=== PATIENT | female | born 1940 | race Caucasian/White ===

== ENCOUNTER 2016-08-18 14:49 | Observation (INO) | payer MEDICARE, OTHER ==
[~2016-08-18] VITALS: Ht 165.1 cm; Wt 70.5 kg
--- NOTE | 2016-09-11 16:25 | HP ---
ADMIT: 08/18/2016 RM/LOC: [address] [facility] MR#: [id number] [facility]#: [id number] [address] [id number] PHILOMENA HER[place] [address] History and Physical SEX: F AGE: 76 : 1940 DATE OF SERVICE: CHIEF COMPLAINT: Unable to walk. HISTORY OF PRESENT ILLNESS: This is a 76-year-old white female, who has diagnoses of Parkinson disease, hypertension, hypothyroidism, depression. She was seen in the office on August 15, was having increasing difficulty with her ambulation, shuffling gait, leaning forward when she walk. She could only tolerate the Sinemet daily instead of more frequently because of stomach pain and GI upset, so we added some Mirapex. Unfortunately, her son felt that it was making her ambulation worse. At that time, they stopped the Sinemet. It was my intent that would be an add on therapy at any rate. She was out walking yesterday and "felt like she just needed to run" and actually fell, was found in the yard by her son. She suffered a right proximal humerus fracture. Today, she has had difficulty walking. She cannot get up from a chair without assistance. She cannot "make my legs work" and I wonder if this is in direct relation to stopping her Sinemet. Because of her inability to ambulate and care for herself at home, she is being admitted OPO for Social Work consult and medication adjustment. PAST MEDICAL HISTORY: Remarkable for: 1. Depression. 2. Some age-related cognitive decline. 3. Hypertension. 4. Hypothyroidism. 5. Carotid occlusive disease. 6. Parkinson disease. 7. Hyperlipidemia. 8. Left shoulder impingement. 9. Gastroesophageal reflux disease. 10.Prior history of gastric ulcer with gastric ulcer surgery. PAST SURGICAL HISTORY: Other surgeries include tubal ligation, , and total abdominal hysterectomy. CURRENT MEDICATIONS: 1. Levothyroxine 50 mcg 1-1/2 tab daily. 2. Pramipexole 0.25 mg b.i.d. 3. PreserVision one tab daily. 4. Sertraline 100 mg two tabs daily. 5. Xalatan 0.005% ophthalmic solution once daily. 6. Lisinopril 20 mg daily. 7. Norvasc 10 mg daily. 8. Pravastatin 20 mg at bedtime. 9. Wellbutrin XL 300 mg daily. ALLERGIES: ZITHROMAX. FAMILY HISTORY: Father's history is unknown. Mother had lupus and DJD. Half ADMIT: 08/18/2016 RM/LOC: 506 [facility] MR#: [id number] [address] [id number] PHILOMENA HERMOSILLO [address] [place] [address] History and Physical SEX: F AGE: 76 : 1940 brother with pancreatic cancer. Maternal grandfather with pancreatic cancer. SOCIAL HISTORY: Does not smoke. Does not drink. She is . She is retired RN. Lives at home with her son. REVIEW OF SYSTEMS: GENERAL: No fevers or chills. HEENT: No headaches, blurry vision, or double vision. CARDIAC: No chest pains. PULMONARY: No shortness of breath. GASTROINTESTINAL: No nausea or diarrhea. GENITOURINARY: No dysuria, urgency, or frequency. ENDOCRINE: No polyuria or polydipsia. PSYCH: History of depression which is stable. All others are negative. PHYSICAL EXAMINATION: VITAL SIGNS: Blood pressure is 122/68, pulse 72, respirations 18, temp 99.2. GENERAL: She is in no acute distress. She is alert, oriented. HEENT: Pupils are reactive. Conjunctivae are clear. Clear nasal mucosa. Clear oropharynx. Moist mucous membranes. NECK: Soft and supple. LUNGS: Clear to auscultation with normal respiratory effort. HEART: Regular without murmur. ABDOMEN: Soft. It is nontender. EXTREMITIES: No cyanosis. No clubbing. SKIN: No rash. NEUROLOGIC: Cranial nerves II through XII grossly intact. No focal deficits. Does have immobilized right lower extremity due to the proximal humerus fracture. On evaluation of her gait, she does have significant shuffling of her gait. She is very unsteady on her feet. In fact, just taking two or three steps and she is very wobbly. ADMIT: 08/18/2016 RM/LOC: [address] [facility] MR#: [id number] [address] [place] [id number] PHILOMENA HERMOSILLO [address] [place] [address] History and Physical SEX: F AGE: 76 : 1940 ASSESSMENT: 1. Significant gait disturbance with frequent falls. 2. Right humerus fracture. 3. Parkinson disease. 4. Hypertension. 5. Depression. 6. Hypothyroidism. PLAN: We are going to admit OPO. Get Therapy to see her. Get her back on her Sinemet. Try the Mirapex again, maybe at a lower dose until we can get her move around better. She will likely need at least intermediate placement due to lack of ability to care for herself at home. Emmanuel Ness MD/ sheila JOB #: [id number] CC: Emmanuel Ness, Attending Physician Emmanuel Ness, Family Physician
== END 2016-08-20 11:45 ==
LOC: 5MS 14:49
PROVIDERS: ADMIT Family Medicine
DX: S42.201A Unspecified fracture of upper end of right humerus, initial encounter for closed fracture (principal); R29.6 Repeated falls; I10 Essential (primary) hypertension; E78.5 Hyperlipidemia, unspecified; E03.9 Hypothyroidism, unspecified; F32.9 Major depressive disorder, single episode, unspecified; G20 Parkinson's disease; K21.9 Gastro-esophageal reflux disease without esophagitis; Z90.710 Acquired absence of both cervix and uterus; Z98.51 Tubal ligation status; Z79.899 Other long term (current) drug therapy; Z88.1 Allergy status to other antibiotic agents; Z86.73 Personal history of transient ischemic attack (TIA), and cerebral infarction without residual deficits; Z98.890 Other specified postprocedural states; W19.XXXA Unspecified fall, initial encounter